=== PATIENT | female | born 1970 | race Caucasian/White ===

== ENCOUNTER 2017-09-18 10:02 | Emergency (ER) | payer BC ==
--- NOTE | 2017-09-18 10:28 | EDM.PDOC ---
ED HPI GENERAL MEDICAL PROBLEM - General Chief Complaint: Lower Extremity Injury/Pain Stated Complaint: LUMP ON RT ANKLE Time Seen by Provider: 09/18/17 10:13 - History of Present Illness INITIAL COMMENTS - FREE TEXT/NARRATIVE: HISTORY AND PHYSICAL: History of present illness: Patient's 47-year-old white female who presents with a concern of right leg pain patient noticed some fullness of her leg for months but states his pain developed in the last 24 hours. There's been no fever chills nausea vomiting she denies history of DVT or pulmonary embolism. Review of systems: As per history of present illness and below otherwise all systems reviewed and negative. Past medical history: As per history of present illness and as reviewed below otherwise noncontributory. Surgical history: As per history of present illness and as reviewed below otherwise noncontributory. Social history: No reported history of drug or alcohol abuse. Family history: As per history of present illness and as reviewed below otherwise noncontributory. Physical exam: HEENT: Atraumatic, normocephalic, pupils reactive, negative for conjunctival pallor or scleral icterus, mucous membranes moist, throat clear, neck supple, nontender, trachea midline. Lungs: Clear to auscultation, breath sounds equal bilaterally, chest nontender. Heart: S1S2, regular, negative for clicks, rubs, or JVD. Abdomen: Soft, nondistended, nontender. Negative for masses or hepatosplenomegaly. Negative for costovertebral tenderness. Pelvis: Stable nontender. Genitourinary: Deferred. Rectal: Deferred. Extremities: Atraumatic, negative for cords mild discomfort posterior inferior right leg. Neurovascular unremarkable. Neuro: Awake, alert, oriented. Cranial nerves II through XII unremarkable. Cerebellum unremarkable. Motor and sensory unremarkable throughout. Exam nonfocal. Diagnostics: CBC CMP venous Doppler right lower extremity x-ray tib-fib Therapeutics: None Impression: #1 right leg pain Definitive disposition and diagnosis as appropriate pending reevaluation and review of above. Right Leg Pain Score (Numeric/FACES): 3 - Related Data Allergies Allergy/AdvReac Type Severity Reaction Status Date / Time No Known Allergies Allergy Verified 09/18/17 10:15 Home Meds: Home Meds Cranberry Extract/Vit C [Azo Cranberry Softgel] 1 each PO DAILY 11/29/13 [ History] Past Medical History - Past Health History Medical/Surgical History: Denies Medical/Surgical History Social & Family History - Tobacco Use Smoking Status *Q: Never Smoker Second Hand Smoke Exposure: No - Caffeine Use Caffeine Use: Reports: Other - Alcohol Use Days Per Week of Alcohol Use: 1 Number of Drinks Per Day: 1 Total Drinks Per Week: 1 - Recreational Drug Use Recreational Drug Use: No Review of Systems - Review of Systems Review Of Systems: ROS reveals no pertinent complaints other than HPI. ED EXAM, GENERAL - Physical Exam Exam: See Below (The dictation) Course - Vital Signs Last Recorded V/S: Last Vital Signs Temp 36.2 C 09/18/17 10:16 Pulse 100 09/18/17 10:16 Resp 20 09/18/17 10:16 BP 135/87 09/18/17 10:16 Pulse Ox 100 09/18/17 10:16 - Orders/Labs/Meds Orders: Active Orders 24 hr Category Date Time Status Tibia Fibula Rt [CR] Stat Exams 09/18/17 10:24 Ordered Venous Doppler Lwr Ext Rt [US] Stat Exams 09/18/17 10:24 Ordered CBC WITH AUTO DIFF [HEME] Stat Lab 09/18/17 10:25 Ordered COMPREHENSIVE METABOLIC PN,CMP [CHEM] Stat Lab 09/18/17 10:25 Ordered Departure - Departure Time of Disposition: 10:27 Disposition: Home, Self-Care 01 Condition: Good Clinical Impression: Leg pain - Discharge Information Referrals: PCP,None [Primary Care Provider] - Additional Instructions: The following information is given to patients seen in the emergency department who are being discharged to home. This information is to outline your options for follow-up care. We provide all patients seen in our emergency department with a follow-up referral. The need for follow-up, as well as the timing and circumstances, are variable depending upon the specifics of your emergency department visit. If you don't have a primary care physician on staff, we will provide you with a referral. We always advise you to contact your personal physician following an emergency department visit to inform them of the circumstance of the visit and for follow-up with them and/or the need for any referrals to a consulting specialist. The emergency department will also refer you to a specialist when appropriate. This referral assures that you have the opportunity for followup care with a specialist. All of these measure are taken in an effort to provide you with optimal care, which includes your followup. Under all circumstances we always encourage you to contact your private physician who remains a resource for coordinating your care. When calling for followup care, please make the office aware that this follow-up is from your recent emergency room visit. If for any reason you are refused follow-up, please contact the [facility] emergency department at and asked to speak to the emergency department charge nurse. [facility] Professional [facility] [address] [place] [address], [address] [place] [address] Call to schedule appointment above return as needed as discussed - My Orders Last 24 Hours: My Active Orders 09/18/17 10:24 Tibia Fibula Rt [CR] Stat Venous Doppler Lwr Ext Rt [US] Stat 09/18/17 10:25 CBC WITH AUTO DIFF [HEME] Stat COMPREHENSIVE METABOLIC PN,CMP [CHEM] Stat - Assessment/Plan Last 24 Hours: My Active Orders 09/18/17 10:24 Tibia Fibula Rt [CR] Stat Venous Doppler Lwr Ext Rt [US] Stat 09/18/17 10:25 CBC WITH AUTO DIFF [HEME] Stat COMPREHENSIVE METABOLIC PN,CMP [CHEM] Stat
[2017-09-18 11:15] LABS: CHLORIDE,CL 105 mmol/L (98-107); SODIUM,NA 139 mmol/L (136-145)
--- NOTE | 2017-09-18 11:18 | US ---
ULTRASOUND EXAMINATION OF the right lower extremity WITH DOPPLER HISTORY: Pain FINDINGS: Examination of the right leg was performed from the groin to the calf region. All visualized segment s including common femoral, proximal greater saphenous, superficial femoral, popliteal and calf veins appear patent with good compressibility and augmentation. There is no evidence of deep vein thrombo sis. IMPRESSION: No evidence of a DVT.
--- NOTE | 2017-09-18 11:20 | CR ---
EXAMINATION: Right tibia and fibula HISTORY: Pain COMPARISON: None TECHNIQUE: 2 views FINDINGS/IMPRESSION: There is no acute osseous abnormality, dislocation, or fracture. Bone mineraliza tion and joint spaces are preserved. No focal soft tissue swelling.
== END 2017-09-18 11:35 | disposition home or self-care (01) ==
LOC: MW.ED 10:02
DX: M79.604 Pain in right leg (principal)
CPT/HCPCS: 36415; 73590-26-RT; 73590-RT; 80053; 85025; 93971-26-RT; 93971-RT; 99284-25